=== PATIENT | male | born 1940 | race Caucasian/White ===

== ENCOUNTER 2019-08-07 19:09 | Inpatient (IN) | payer MEDICARE, BC ==
[~2019-08-07] VITALS: Ht 182.9 cm; Wt 81.2 kg
[2019-08-07 19:57] LABS: BASOPHILS % (AUTO) 0.2 % (0.0-2.0); EOSINOPHILS # (AUTO) 0.1 K/uL (0.0-0.7); EOSINOPHILS % (AUTO) 0.8 % (0.0-7.0); HEMATOCRIT 40.4 % (36.7-47.1); HEMOGLOBIN 13.9 g/dL (12.5-16.3); LYMPHOCYTES # (AUTO) 0.8 K/uL (20.0-40.0); LYMPHOCYTES % (AUTO) 9.7 % (20.5-51.5); MEAN CORPUSCULAR HGB CONC 34 g/dL (32.5-36.3); MEAN CORPUSCULAR VOLUME 96.3 fL (73.0-96.2); MONOCYTES # (AUTO) 0.4 K/uL (2.0-10.0); MONOCYTES % (AUTO) 4.7 % (0.0-11.0); NEUTROPHILS # (AUTO) 7.4 K/uL (1.8-8.9); NEUTROPHILS % (AUTO) 84.6 % (38.5-71.5); PLATELET COUNT (AUTO) 247 K/uL (152-348); WHITE BLOOD COUNT (AUTO) 8.7 K/uL (3.6-10.2)
[2019-08-07 20:05] LABS: CREATININE 1.3 mg/dL (0.6-1.3); POTASSIUM 3.8 mmol/L (3.5-5.1)
[2019-08-07 20:11] LABS: BILIRUBIN,DIRECT 0.2 mg/dL (0.0-0.2); BILIRUBIN,TOTAL 0.7 mg/dL (0.2-1.0); TOTAL PROTEIN, SERUM 8.2 g/dL (6.4-8.2)
[2019-08-07 20:17] LABS: ETHANOL < 3 MG/DL (0-0)
[2019-08-07 20:30] LABS: *BILIRUBIN,URIN NEGATIVE (NEGATIVE); *BLOOD, URINE NEGATIVE (NEGATIVE); *CLARITY,URINE CLEAR (CLEAR); *COLOR,URINE DARK YELLOW (YELLOW); *KETONES,URINE NEGATIVE (NEGATIVE); *UROBILINOGEN,URINE 0.2 E.U./dl (NORMAL); LEUKOCYTE ESTERASE ,URINE NEGATIVE (NEGATIVE); NITRITE, URINE NEGATIVE (NEGATIVE); PH,URINE 8.5 (5.0-8.0); UGLUCOSE NEGATIVE (NEGATIVE)
[2019-08-07] MEDS ORDERED: CEFTRIAXONE 1 G VIAL ONE (20:30)
[2019-08-07] MEDS ORDERED: IV NORMAL SALINE 1000 ML BAG IV ONE (20:30)
[2019-08-07] MEDS ORDERED: CEFTRIAXONE 1 G in IV DEXTROSE 5% 50 ML IV ONE (20:30)
[2019-08-07] MEDS ORDERED: METRONIDAZOLE 500 MG/NS 100ML 100 ML IV ONE ×2 (20:30→20:31)
[2019-08-07 20:35] LABS: BACTERIA,URINE NONE SEEN /HPF (NONE SEEN); RBC,URINE 0-3 /HPF (0-3); SQUAMOUS EPITHELIAL CELL,UR NONE SEEN /HPF (NONE SEEN); URINE AMORPHOUS PHOSPHATES FEW /HPF; WBC,URINE 0-3 /HPF (0-3)
[2019-08-07 20:36] LABS: MUCUS,URINE FEW /LPF (0-FEW)
[2019-08-07 20:40] LABS: *AMPHETAMINE, URINE NEGATIVE (NEGATIVE); *BARBITURATE, URINE NEGATIVE (NEGATIVE); *CANNABINOID, URINE NEGATIVE (NEGATIVE); *COCCAINE, URINE NEGATIVE (NEGATIVE); *OPIATE, URINE NEGATIVE (NEGATIVE); *PHENCYCLIDINE SCREEN,URINE NEGATIVE (NEGATIVE)
[2019-08-07] MEDS ORDERED: ONDANSETRON 4 MG/2 ML VIAL IV PRN (20:45)
[2019-08-07] MEDS ORDERED: IV D5/ 0.9% NACL 1,000 ML IV PRN (20:45)
[2019-08-07] MEDS ORDERED: ACETAMINOPHEN 650 MG SUPP.RECT RC PRN (20:45)
[2019-08-07] MEDS ORDERED: DIATR MEGLU/DIATRIZOATE SODIUM 30 ML SOLUTION ONE (22:21)
[2019-08-07 22:45] VITALS: BP 151/87
[2019-08-07 23:56] VITALS: BP 142/63
[2019-08-08] VITALS: BP 142/67
[2019-08-08] MEDS ORDERED: IV NORMAL SALINE 250 ML IV ONE (00:36)
[2019-08-08] MEDS ORDERED: IOHEXOL 300MG/ML 100 ML INFUS..BTL ONE (00:36)
[2019-08-08] MEDS ORDERED: SWABABLE VALVE TRANSFER SET EA MC ONE (00:36)
[2019-08-08 03:40] VITALS: BP 140/110
[2019-08-08] MEDS ORDERED: MORPHINE SULFATE 4 MG/1 ML DISP.SYRIN IV PRN (04:45)
[2019-08-08] MEDS ORDERED: ETOMIDATE 20 MG/10 ML VIAL IV ONE (06:00)
[2019-08-08] MEDS ORDERED: ROCURONIUM BROMIDE 50 MG/5 ML VIAL IV ONE (06:00)
[2019-08-08] MEDS ORDERED: SUCCINYLCHOLINE CHLORIDE 200 MG/10 ML VIAL IV ONE (06:00)
[2019-08-08] MEDS ORDERED: PANTOPRAZOLE SODIUM 40 MG VIAL IV SCH (09:00)
== END 2019-08-08 06:07 | disposition expired | DRG 393 ==
LOC: ER 19:11 → TELE-TD3 22:05
PROC: 06HY33Z Insertion of Infusion Device into Lower Vein, Percutaneous Approach (ICD-10-PCS; principal; 2019-08-08)
PROC: 5A12012 Performance of Cardiac Output, Single, Manual (ICD-10-PCS; 2019-08-08)
PROC: 0BH17EZ Insertion of Endotracheal Airway into Trachea, Via Natural or Artificial Opening (ICD-10-PCS; 2019-08-08)
PROC: 0D9670Z Drainage of Stomach with Drainage Device, Via Natural or Artificial Opening (ICD-10-PCS; 2019-08-08)
DX: K55.9 Vascular disorder of intestine, unspecified (principal); G93.41 Metabolic encephalopathy; K56.2 Volvulus; K56.690 Other partial intestinal obstruction; E87.2 Acidosis; I47.1 Supraventricular tachycardia; J98.11 Atelectasis; G30.9 Alzheimer's disease, unspecified; F02.80 Dementia in other diseases classified elsewhere, unspecified severity, without behavioral disturbance, psychotic disturbance, mood disturbance, and anxiety; E78.5 Hyperlipidemia, unspecified; I95.1 Orthostatic hypotension; I44.0 Atrioventricular block, first degree; K90.0 Celiac disease; Z86.73 Personal history of transient ischemic attack (TIA), and cerebral infarction without residual deficits; I67.2 Cerebral atherosclerosis; N28.1 Cyst of kidney, acquired; G93.89 Other specified disorders of brain; T17.918A Gastric contents in respiratory tract, part unspecified causing other injury, initial encounter; X58.XXXA Exposure to other specified factors, initial encounter; Y92.239 Unspecified place in hospital as the place of occurrence of the external cause; Z79.899 Other long term (current) drug therapy; J34.2 Deviated nasal septum; K57.30 Diverticulosis of large intestine without perforation or abscess without bleeding; Z85.068 Personal history of other malignant neoplasm of small intestine
CPT/HCPCS: 36415; 70030-TC; 70450; 71045; 80307; 83605; 85025; 85730; 87040; 87086; 93005; A4663; G0378; G0480; J0330; J0696; J2270; J2405; J3490; J7030; J7040; J7042; J7050; J7060; Q9963; Q9967